=== PATIENT | male | born 1965 | race Hispanic/Latino ===

== ENCOUNTER 2018-01-20 06:58 | Day surgery (SDC) | payer OTHER ==
[~2018-01-20] VITALS: Ht 177.8 cm; Wt 34.5 kg
[~2018-01-20 06:58] MED LIST: LOSA25TA21 PO; SODIUM CHLORIDE 0.9% 1000ML 1,000 ML IV ONE; TAMS0.4C32 PO
[2018-01-20 07:12] VITALS: BP 140/73
[2018-01-20] MEDS ORDERED: PROPOFOL 10 MG/ML 20ML VIAL IV ONE (09:09)
[2018-01-20 09:31] VITALS: BP 96/51
== END 2018-01-20 10:00 | disposition home or self-care (01) ==
LOC: ENDO 06:58 → DAH 06:58 → ENDO 10:00
PROVIDERS: ATTEND Internal Medicine Gastroenterology
DX: Z12.11 Encounter for screening for malignant neoplasm of colon (principal); Z68.44 Body mass index [BMI] 60.0-69.9, adult; N40.0 Benign prostatic hyperplasia without lower urinary tract symptoms; I10 Essential (primary) hypertension; M10.9 Gout, unspecified; G47.33 Obstructive sleep apnea (adult) (pediatric); Z79.899 Other long term (current) drug therapy
CPT/HCPCS: 45378; A4606; J2704; J7030